=== PATIENT | female | born 1975 ===

== ENCOUNTER 2017-08-08 11:24 | Emergency (ER) | payer MEDICAID ==
[2017-08-08 11:24] VITALS: BMI 31.2
[2017-08-08 11:44] VITALS: O2SAT 99
[2017-08-08] MEDS ORDERED: Naproxen 550 mg Tab PO STA (12:13)
--- NOTE | 2017-08-08 12:29 | C.PDOC ---
History Of Present Illness 42 yo female c/o right hand pain x 3 days. Notes pain radiates from her pinky to her wrist. Pt notes she was cooking and the cutting machine hit her hand on the palm. No fall. No change in sensation. Right hand dominant. Time Seen by Provider: 08/08/17 11:59 Chief Complaint (Nursing): Upper Extremity Problem/Injury History Per: Patient History/Exam Limitations: no limitations Onset/Duration Of Symptoms: Days Current Symptoms Are (Timing): Still Present Quality: "Pain" Past Medical History Vital Signs: Last Vital Signs Temp 98.6 F 08/08/17 11:44 Pulse 70 08/08/17 11:44 Resp 18 08/08/17 11:44 BP 114/79 08/08/17 11:44 Pulse Ox 99 08/08/17 12:51 Family History: States: Unknown Family Hx - Social History Hx Tobacco Use: No Hx Alcohol Use: No Hx Substance Use: No - Immunization History Hx Tetanus Toxoid Vaccination: No Hx Influenza Vaccination: No Hx Pneumococcal Vaccination: No Review Of Systems Except As Marked, All Systems Reviewed And Found Negative. Constitutional: Negative for: Fever Musculoskeletal: Positive for: Hand Pain Neurological: Negative for: Weakness, Numbness Physical Exam - Physical Exam Appears: Well, Non-toxic, No Acute Distress Skin: Normal Color, Warm, Dry Head: Atraumatic, Normacephalic Eye(s): bilateral: Normal Inspection, EOMI Nose: Normal Oral Mucosa: Moist Chest: Symmetrical Respiratory: No Accessory Muscle Use Extremity: Normal ROM (FROM though pain illicited with making a fist), Tenderness (diffuse palm and dorsal aspect of wrist), Capillary Refill (<2 sec) , Swelling (mild) Extremity: Bilateral: Normal Color And Temperature, Normal ROM Pulses: Left Radial: Normal, Right Radial: Normal Neurological/Psych: Oriented x3, Normal Speech, Normal Motor, Normal Sensation ED Course And Treatment O2 Sat by Pulse Oximetry: 99 - Other Rad Wrist XR X-Ray: Interpreted by Me, Viewed By Me Interpretation: PROCEDURE: Right Wrist Radiographs. . HISTORY: pain. COMPARISON: None. FINDINGS: BONES: Normal. No fracture. JOINTS: Normal. No dislocation. SOFT TISSUES: Normal. OTHER FINDINGS: None. IMPRESSION: Normal right wrist radiographs. Hand XR X-Ray: Interpreted by Me, Viewed By Me Interpretation: PROCEDURE: Right Hand Radiographs. HISTORY: pain. COMPARISON : None. FINDINGS: BONES: Normal. No fracture. JOINTS: Normal. No osteoarthritic changes. SOFT TISSUES: Normal. OTHER FINDINGS: None. IMPRESSION: Normal right hand radiographs. Progress Note: Wrist immobilizer applied by medical care administrator. Instructed to follow up with hand specialist in 1-2 days or return to eR if symptoms persist or worsen. Disposition - Disposition Referrals: Ashanti Eldridge MD [Staff Provider] - Disposition: HOME/ ROUTINE Disposition Time: 12:43 Condition: STABLE Additional Instructions: Vaya a young mdico o la clnica en 1-3 dennis sin falta, para mas evaluacin. [place] los medicamentos jennifer indicado. Volver a la nader de emergencia en cualquier momento si los sntomas persisten o empeoran. Prescriptions: Naproxen [Naprosyn] 1 tab PO BID PRN #20 tab PRN Reason: Pain Instructions: Hand Sprain (ED) Forms: [facility] (Norwegian), Work Excuse Print Language: ETHIOPIAN - Clinical Impression Clinical Impression: Hand contusion
--- NOTE | 2017-08-08 12:40 | RAD ---
PROCEDURE: Right Wrist Radiographs. HISTORY: pain COMPARISON: None. FINDINGS: BONES: Normal. No fracture. JOINTS: Normal. No dislocation. SOFT TISSUES: Normal. OTHER FINDINGS: None. IMPRESSION: Normal right wrist radiographs.
--- NOTE | 2017-08-08 12:41 | RAD ---
PROCEDURE: Right Hand Radiographs. HISTORY: pain COMPARISON: None. FINDINGS: BONES: Normal. No fracture. JOINTS: Normal. No osteoarthritic changes. SOFT TISSUES: Normal. OTHER FINDINGS: None. IMPRESSION: Normal right hand radiographs.
[2017-08-08] MEDS ORDERED: Naproxen 550 mg Tab PO ONE (12:55)
[2017-08-08 13:40] VITALS: BP 116/78; PULSE 67; RESP 16; TEMP 98
== END 2017-08-08 13:50 | disposition home or self-care (01) ==
LOC: C.ER 11:24
DX: S60.221A Contusion of right hand, initial encounter (principal); W31.89XA Contact with other specified machinery, initial encounter; Y93.G3 Activity, cooking and baking

== ENCOUNTER 2017-11-19 09:15 | Emergency (ER) | payer MEDICAID ==
[2017-11-19 09:16] VITALS: BMI 31.2
[2017-11-19 09:24] VITALS: RESP 18
[2017-11-19 09:43] LABS: SQUAMOUS EPITHIAL 24 /hpf (0-5); URINE BACTERIA RARE (<OCC); URINE BILIRUBIN NEGATIVE (NEGATIVE); URINE BLOOD 1+ (NEGATIVE); URINE CLARITY Hazy (Clear); URINE COLOR Yellow (YELLOW); URINE GLUCOSE (UA) NORMAL (Normal); URINE LEUKOCYTE ESTERASE 3+ Leu/uL (Negative); URINE NITRATE NEGATIVE (NEGATIVE); URINE PROTEIN NEGATIVE (NEGATIVE); URINE UROBILINOGEN NORMAL mg/dL (0.2-1.0)
[2017-11-19 09:48] LABS: HCG,QUALITATIVE URINE POSITIVE (NEGATIVE)
[2017-11-19] MEDS ORDERED: Sodium Chloride 0.9% 500 ML IV ONE (09:53)
--- NOTE | 2017-11-19 10:24 | C.PDOC ---
History Of Present Illness 42 year old female, A1, no hx of ectopic, LMP: 09/12/17, presents to ED for evaluation of gradual development of right groin pain over the past 2-3 weeks but has gradually worsened. Patient notes being seen at the clinic on 11/01/17, had blood work done, but has not followed with the physician yet. Blood work from 11/01 given by pt was reviewed, which shows consistency with UTI and (+) H. Pylori. Otherwise, denies fever, chills, chest pain, shortness of breath, vaginal discharge, vaginal bleeding, back pain, dysuria, or hematuria. Time Seen by Provider: 11/19/17 09:25 Chief Complaint (Nursing): Abdominal Pain History Per: Patient History/Exam Limitations: no limitations Onset/Duration Of Symptoms: Days Current Symptoms Are (Timing): Still Present Associated Symptoms: denies: Back Pain, Urinary Symptoms Exacerbating Factors: None Alleviating Factors: None Recent travel outside of the [place]: No Additional History Per: Patient Abnormal Vaginal Bleeding: No Past Medical History Reviewed: Historical Data, Nursing Documentation, Vital Signs Vital Signs: Last Vital Signs Temp 98.5 F 11/19/17 09:19 Pulse 85 11/19/17 09:19 Resp 18 11/19/17 09:19 BP 101/64 11/19/17 09:19 Pulse Ox 98 11/19/17 10:28 Family History: States: Unknown Family Hx - Social History Hx Tobacco Use: No Hx Alcohol Use: No Hx Substance Use: No - Immunization History Hx Tetanus Toxoid Vaccination: No Hx Influenza Vaccination: No Hx Pneumococcal Vaccination: No Review Of Systems Except As Marked, All Systems Reviewed And Found Negative. Constitutional: Negative for: Fever, Chills Cardiovascular: Negative for: Chest Pain, Palpitations Respiratory: Negative for: Cough, Shortness of Breath Gastrointestinal: Negative for: Nausea, Vomiting, Diarrhea Genitourinary: Positive for: Pelvic Pain (right groin pain). Negative for: Dysuria, Frequency, Hematuria, Vaginal Discharge, Vaginal Bleeding Musculoskeletal: Negative for: Back Pain Neurological: Negative for: Headache, Dizziness Physical Exam - Physical Exam Appears: Non-toxic, No Acute Distress Skin: Normal Color, Warm, Dry Head: Normacephalic Eye(s): bilateral: PERRL Nose: No Flaring, No Discharge Oral Mucosa: Moist Throat: No Erythema, No Drooling Neck: Trachea Midline, Supple, Other ((-) carotid bruits B/L) Cardiovascular: Rhythm Regular, No Murmur, No JVD Respiratory: No Accessory Muscle Use, No Rales, No Rhonchi, No Wheezing Gastrointestinal/Abdominal: Soft, No Tenderness, No Guarding, No Rebound Back: No CVA Tenderness Extremity: Normal ROM, No Pedal Edema, No Deformity Neurological/Psych: Oriented x3, Normal Speech ED Course And Treatment - Laboratory Results Result Diagrams: 11/19/17 10:20 11/19/17 10:20 Lab Interpretation: Normal Urine POC: Positive O2 Sat by Pulse Oximetry: 98 (RA) Pulse Ox Interpretation: Normal - CT Scan/US US Other Rad Studies (CT/US): Read By Radiologist CT/US Interpretation: (+)viable SIUP 9w2d, (+) YS, FP, HR 164/min Progress Note: Blood work, urinalysis, 1st trimester ultrasound ordered and reviewed. On re-eval, pt is afebrile, hemodynamicaly stable. Non- toxic, tolerate Po well in ED. ENT: no acute findings. neck: Supple. Lungs: CTA B/L, BS equal B/L. Abd: benign, (-) guaridng, (-) rebound, (-) localized tenderness. back: (-) CVA tenderness. Blood work review and appeas normal. UA results review and c/w UTI. UCx-pending. Pt received Rocephin, IV fluids. US results review (+) SIUP 9w2d, no acute abnormalities. beta quant correlates with US findings. Blood type: O positive. Pt has clinical findings c/w UTI, r/ o threatened . Pt advised and ref. to f/u with OB in 1-2 days for re- eval. return to ED if any worsening or new changes. Disposition Counseled Patient/Family Regarding: Studies Performed, Diagnosis, Need For Followup, Rx Given - Disposition Referrals: [facility] [Outside] [facility] [Outside] Disposition: HOME/ ROUTINE Disposition Time: 11:50 Condition: STABLE Additional Instructions: ENCOURAGE FLUIDS CRANBERRY SUPPLEMENT TAKE MEDICATION PRESCRIBED FOLLOW UP WITH OB AND PMD IN 2-3 DAYS FOR RE-EVALUATION. RETURN TO ED IF ANY WORSENING OR NEW CHANGES. Prescriptions: Nitrofurantoin Macrocrystals [Macrobid] 1 cap PO BID #14 cap Instructions: Urinary Tract Infection in (ED), Threatened Miscarriage (ED) Forms: [employer] (Belarusian) Print Language: POLISH - Clinical Impression Clinical Impression: Abdominal pain, UTI in , Threatened - PA / MANAGER PULMONARY / Resident Statement MD/DO has reviewed & agrees with the documentation as recorded. - Scribe Statement The provider has reviewed the documentation as recorded by the Arlynibraymundo De Los Santos All medical record entries made by the Arlynibraymundo were at my direction and personally dictated by me. I have reviewed the chart and agree that the record accurately reflects my personal performance of the history, physical exam, medical decision making, and the department course for this patient. I have also personally directed, reviewed, and agree with the discharge instructions and disposition.
[2017-11-19 10:25] LABS: BASO % 0.4 % (0.0-2.0); EOS # 0.1 K/uL (0.0-0.7); EOS % 0.7 % (0.0-4.0); HEMOGLOBIN 11.7 g/dL (11.0-16.0); LYMPH # 1.5 K/uL (1.0-4.3); LYMPH % 19.1 % (20.0-40.0); MEAN CELL VOLUME 88.9 fL (81.0-99.0); MEAN CORPUSCULAR HEMOGLOBIN 30.7 pg (27.0-31.0); MEAN CORPUSCULAR HGB CONC 34.5 g/dL (33.0-37.0); MEAN PLATELET VOLUME 8.4 fL (7.2-11.7); MONO # 0.4 K/uL (0.0-0.8); MONO % 5.4 % (0.0-10.0); NEUT # 5.9 K/uL (1.8-7.0); NEUT % 74.4 % (50.0-75.0); NRBC % 0.1 % (0.0-2.0); RBC 3.8 Mil/uL (3.80-5.20); RED CELL DISTRIBUTION WIDTH 13.5 % (11.5-14.5)
[2017-11-19 10:37] LABS: BLOOD UREA NITROGEN 8 mg/dL (7-17); CALCIUM 7.9 mg/dl (8.6-10.4); GFR AFRICAN-AMERICAN > 60; GFR NON-AFRICAN AMERICAN > 60
--- NOTE | 2017-11-19 12:18 | US ---
PROCEDURE: OB Pelvic Ultrasound HISTORY: Right groin pain COMPARISON: Comparison is made with the previous pelvic ultrasound dated 01/17/2017 FINDINGS: UTERUS: Gestational sac: Single intrauterine gestation. Heart rate: 165. Bpm. age (Ultrasound estimated): 9 weeks 3 days 0 weeks 5 day Charity-gestational hemorrhage: None. Date of delivery (Ultrasound estimated) : 06/21/2018 Uterus measures 12.1 x 6.8 x 8.4 cm. Normal in size and appearance. CERVIX: Long and closed. No cervical abnormality seen. RIGHT OVARY: The right ovary was not visualized LEFT OVARY: Measures 4.6 x 3.7 x 4 point cm. No solid mass. Normal flow. There is left ovarian cyst measures 3.2 x 3 x 3.5 centimeter. FREE FLUID: None. OTHER FINDINGS: None. IMPRESSION: Single intrauterine live with ultrasound estimated gestational age of 9 weeks 3 days 0 weeks 5 days. Estimated date of delivery by ultrasound is 06/21/2018. Left ovarian cyst measures 3.5 centimeter.
[2017-11-19 12:47] VITALS: BP 101/68; PULSE 67; TEMP 98.9; O2SAT 99
== END 2017-11-19 13:39 | disposition home or self-care (01) ==
LOC: C.ER 09:15
DX: O23.41 Unspecified infection of urinary tract in pregnancy, first trimester (principal); O20.0 Threatened abortion; Z3A.09 9 weeks gestation of pregnancy
CPT/HCPCS: 76801; 80048; 81001; 84702; 84703; 85025; 86850; 86900; 87086; 96374; 99285; J0696; J7040

== ENCOUNTER 2018-01-18 08:05 | Emergency (ER) | payer MEDICAID ==
[2018-01-18 08:05] VITALS: BMI 29.4
[2018-01-18 09:08] LABS: BASO % 0.4 % (0.0-2.0); EOS # 0.1 K/uL (0.0-0.7); EOS % 0.7 % (0.0-4.0); LYMPH # 1.2 K/uL (1.0-4.3); MEAN CELL VOLUME 90.6 fL (81.0-99.0); MEAN CORPUSCULAR HEMOGLOBIN 31.8 pg (27.0-31.0); MEAN CORPUSCULAR HGB CONC 35.1 g/dL (33.0-37.0); MEAN PLATELET VOLUME 8.2 fL (7.2-11.7); MONO # 0.4 K/uL (0.0-0.8); MONO % 5.3 % (0.0-10.0); NEUT # 6.4 K/uL (1.8-7.0); NEUT % 78.6 % (50.0-75.0); RBC 3.15 Mil/uL (3.80-5.20); RED CELL DISTRIBUTION WIDTH 14.3 % (11.5-14.5); WHITE BLOOD COUNT 8.2 K/uL (4.8-10.8)
[2018-01-18 09:22] LABS: SQUAMOUS EPITHIAL 63 /hpf (0-5); URINE BACTERIA RARE (<OCC); URINE BILIRUBIN NEGATIVE (NEGATIVE); URINE BLOOD NEGATIVE (NEGATIVE); URINE CLARITY Hazy (Clear); URINE COLOR Yellow (YELLOW); URINE GLUCOSE (UA) NORMAL (Normal); URINE LEUKOCYTE ESTERASE 3+ Leu/uL (Negative); URINE PROTEIN NEGATIVE (NEGATIVE); URINE UROBILINOGEN NORMAL mg/dL (0.2-1.0)
[2018-01-18 09:24] LABS: ALBUMIN 3.1 g/dL (3.5-5.0); ALT/SGPT 30 U/L (9-52); AST/SGOT 22 U/L (14-36); BLOOD UREA NITROGEN 10 mg/dL (7-17); CALCIUM 7.7 mg/dl (8.6-10.4); GFR AFRICAN-AMERICAN > 60; GFR NON-AFRICAN AMERICAN > 60
--- NOTE | 2018-01-18 10:58 | US ---
PROCEDURE: Obstetrical ultrasound examination HISTORY: pelvic pain, COMPARISON: 11/19/2017 TECHNIQUE: Transabdominal FINDINGS: Examination demonstrates a single live intrauterine gestation in cephalic presentation. The 134 beats per minute. A normal anterior placenta is identified. There is no evidence of placenta previa. The cervix is closed and measures 4.4 cm in length. There is a thin linear echogenic structure extending from the left lateral margin of the placenta about the periphery of the gestational sac with low-level echoes deep to this structure. Differential diagnosis includes amniotic band or partial choroidal amniotic separation. Follow-up during 2nd trimester is advised with high risk Maternal Medicine consultation. biometry yields a gestational age of 18 weeks 3 days. The SHAI by ultrasound is 06/18/2018. Right ovary is not visualized. The left ovary measures 3.1 x 3.4 x 3.3 cm and contains a simple cyst measuring 2.8 x 2.5 x 2.5 cm, presumed physiologic. IMPRESSION: Single live intrauterine gestation of approximately 18 weeks 3 days gestational age. No anatomic abnormality identified though anatomic evaluation is limited at this time. Cervix closed. Anterior placenta. No previa. Cephalic presentation. Echogenic linear structure extending from the left lateral aspect of the placenta around the periphery of the gestational sac. Differential diagnosis includes amniotic band or partial chorioamnionitis separation. Please note that followup evaluation with high risk maternal medicine consultation is advised.
--- NOTE | 2018-01-18 11:45 | C.PDOC ---
History Of Present Illness 42-year-old female, presents to the emergency department with complaints of pelvic discomfort and cramping over the past 2-3 days. Patient is currently 15 weeks . She denies vaginal bleeding, diarrhea, vomiting, dysuria, fever or any other associated symptoms. No other complaints at this time. Time Seen by Provider: 01/18/18 08:15 Chief Complaint (Nursing): Abdominal Pain History Per: Patient History/Exam Limitations: no limitations Past Medical History Reviewed: Historical Data, Nursing Documentation, Vital Signs Vital Signs: Last Vital Signs Temp 98.1 F 01/18/18 09:23 Pulse 81 01/18/18 09:23 Resp 18 01/18/18 09:23 BP 149/88 01/18/18 09:23 Pulse Ox 100 01/18/18 11:56 Family History: States: No Known Family Hx - Social History Hx Tobacco Use: No Hx Alcohol Use: No Hx Substance Use: No - Immunization History Hx Tetanus Toxoid Vaccination: No Hx Influenza Vaccination: No Hx Pneumococcal Vaccination: No Review Of Systems Except As Marked, All Systems Reviewed And Found Negative. Constitutional: Negative for: Fever, Chills Cardiovascular: Negative for: Chest Pain Respiratory: Negative for: Shortness of Breath Gastrointestinal: Positive for: Abdominal Pain Genitourinary: Negative for: Dysuria, Hematuria, Vaginal Discharge, Vaginal Bleeding Skin: Negative for: Rash Neurological: Negative for: Weakness, Numbness Physical Exam - Physical Exam Appears: Well, Non-toxic, No Acute Distress Skin: Normal Color, Warm, Dry, No Rash Head: Normacephalic Neck: Normal ROM Chest: Symmetrical Cardiovascular: Rhythm Regular, No Murmur Respiratory: Normal Breath Sounds, No Decreased Breath Sounds, No Accessory Muscle Use Gastrointestinal/Abdominal: Soft, Tenderness (suprapubic), No Guarding, No Rebound Extremity: Normal ROM, No Deformity, No Swelling Neurological/Psych: Oriented x3, Normal Speech ED Course And Treatment - Laboratory Results Result Diagrams: 01/18/18 08:58 01/18/18 08:58 O2 Sat by Pulse Oximetry: 100 (RA) Pulse Ox Interpretation: Normal - CT Scan/US TRANSVAGINAL US Other Rad Studies (CT/US): Read By Radiologist, Radiology Report Reviewed CT/US Interpretation: Accession No. : [id number]. Patient Name / ID : [facility] / [id number]. Exam Date : 01/18/2018 09:27:39 ( Approved ). Study Comment : Sex / Age : F / 42Y. Creator : Russell Nicholas MD. Dictator : Russell Nicholas MD. Laborer Tree Tapping : [employer] Worker : Russell Nicholas MD. Approver2 : Report Date : 01/18/2018 10:56:52. My Comment : . PROCEDURE: Obstetrical ultrasound examination. HISTORY: pelvic pain, . COMPARISON: 11/19/2017. TECHNIQUE: Transabdominal. FINDINGS: Examination demonstrates a single live intrauterine gestation in cephalic presentation. The 134 beats per minute. A normal anterior placenta is identified. There is no evidence of placenta previa. The cervix is closed and measures 4.4 cm in length. There is a thin linear echogenic structure extending from the left lateral margin of the placenta about the periphery of the gestational sac with low-level echoes deep to this structure. Differential diagnosis includes amniotic band or partial choroidal amniotic separation. Follow-up during 2nd trimester is advised with high risk Maternal Medicine consultation. biometry yields a gestational age of 18 weeks 3 days. The SHAI by ultrasound is 06/18/2018. Right ovary is not visualized. The left ovary measures 3.1 x 3.4 x 3.3 cm and contains a simple cyst measuring 2.8 x 2.5 x 2.5 cm, presumed physiologic. IMPRESSION: Single live intrauterine gestation of approximately 18 weeks 3 days gestational age. No anatomic abnormality identified though anatomic evaluation is limited at this time. Cervix closed. Anterior placenta. No previa. Cephalic presentation. Echogenic linear structure extending from the left lateral aspect of the placenta around the periphery of the gestational sac. Differential diagnosis includes amniotic band or partial chorioamnionitis separation. Please note that followup evaluation with high risk maternal medicine consultation is advised. Progress Note: Bloodwork, Ultrasound OB. Patient treated with Macrobid. Disposition Counseled Patient/Family Regarding: Studies Performed, Diagnosis, Need For Followup, Rx Given - Disposition Referrals: [facility] [Outside] Disposition: HOME/ ROUTINE Disposition Time: 11:45 Condition: STABLE Additional Instructions: SEGUIMIENTO CON OB / MICROBIOLOGY INSTRUCTOR CLINIC DENTRO DE 1 SEMANA USE ANTIBITICOS HASTA QUE HAYA TERMINADO REGRESE AL REBECCA DE EMERGENCIA SI LOS SNTOMAS EMPEORAN FOLLOW UP WITH [facility] WITHIN 1 WEEK USE ANTIBIOITICS UNTIL FINISHED RETURN TO EMERGENCY ROOM IF SYMPTOMS WORSEN Prescriptions: Nitrofurantoin Macrocrystals [Macrobid] 1 cap PO BID #14 cap Instructions: Urinary Tract Infection, Adult (DC) Forms: [employer] (Wolof) Print Language: SERBIAN - POA Present On Arrival: None - Clinical Impression Clinical Impression: UTI in - Scribe Statement The provider has reviewed the documentation as recorded by the Scribe (Kaye Aragon) All medical record entries made by the Scribe were at my direction and personally dictated by me. I have reviewed the chart and agree that the record accurately reflects my personal performance of the history, physical exam, medical decision making, and the department course for this patient. I have also personally directed, reviewed, and agree with the discharge instructions and disposition.
[2018-01-18 12:37] VITALS: BP 101/61; PULSE 70; RESP 20; TEMP 98.3; O2SAT 99
== END 2018-01-18 12:36 | disposition home or self-care (01) ==
LOC: C.ER 08:05
DX: O23.42 Unspecified infection of urinary tract in pregnancy, second trimester (principal); Z3A.18 18 weeks gestation of pregnancy